=== PATIENT | male | born 1985 | race Caucasian/White ===

== ENCOUNTER 2019-03-28 13:26 | Emergency (ER) | payer OTHER ==
[~2019-03-28] VITALS: Ht 180.3 cm; Wt 81.6 kg
[2019-03-28 13:55] VITALS: Ht 180.3 cm; Wt 81.6 kg
[2019-03-28 15:33] VITALS: BP 116/68
== END 2019-03-28 13:55 | disposition home or self-care (01) ==
LOC: ED 13:26
DX: H10.33 Unspecified acute conjunctivitis, bilateral (principal); F17.210 Nicotine dependence, cigarettes, uncomplicated; F19.10 Other psychoactive substance abuse, uncomplicated; Z71.6 Tobacco abuse counseling
CPT/HCPCS: 99406

== ENCOUNTER 2019-10-09 05:32 | Emergency (ER) | payer OTHER ==
[~2019-10-09] VITALS: Ht 180.3 cm; Wt 75.4 kg
[2019-10-09 05:40] VITALS: BP 126/79; Ht 180.3 cm; Wt 75.4 kg
== END 2019-10-09 07:39 | disposition home or self-care (01) ==
LOC: ED 05:32
DX: S61.432A Puncture wound without foreign body of left hand, initial encounter (principal); W26.0XXA Contact with knife, initial encounter; Y93.89 Activity, other specified; Y92.89 Other specified places as the place of occurrence of the external cause; Y99.8 Other external cause status
CPT/HCPCS: Q0092